=== PATIENT | male | born 1990 | race Caucasian/White ===

== ENCOUNTER 2016-11-18 02:35 | Emergency (ER) | payer SELFPAY ==
[~2016-11-18] VITALS: Ht 182.9 cm; Wt 95.3 kg
--- NOTE | 2016-11-18 02:35 | NUR ---
PT LIT BOOTH, PREBOOK. TAKEN TO OF
[2016-11-18 02:38] VITALS: BP 129/96
--- NOTE | 2016-11-18 02:40 | NUR ---
PT IS A 26Y MALE BIB [place] [employer] C/O OF RT ANKLE PAIN X 1 WEEK. PT FOR PRE BOOKING. PT STATES NO MED HX. DENIES N/V/D; SKIN IS PINK/WARM/DRY; AAOX4 WITH EVEN AND STEADY GAIT; LUNGS CLEAR BL; HR EVEN AND REGULAR; PT DENIES ANY FEVER, CP, SOB, OR COUGH AT THIS TIME; PATIENT STATES PAIN OF 8/10 AT THIS TIME; VSS; PATIENT POSITIONED FOR COMFORT; HOB ELEVATED; BEDRAILS UP X2; BED DOWN. ER MD MADE AWARE OF PT STATUS.
--- NOTE | 2016-11-18 02:47 | NUR ---
Dr. Zamora evaluating patient
--- NOTE | 2016-11-18 02:56 | NUR ---
PT TAKEN TO XRAY
--- NOTE | 2016-11-18 03:06 | NUR ---
PT RETURN FROM XRAY
--- NOTE | 2016-11-18 03:06 | NUR ---
Ibis blanchard in [facility] - 11/18/16 at 0306 by JOANN PT RETURN FROM CT
[2016-11-18 03:53] VITALS: BP 125/88
--- NOTE | 2016-11-18 03:53 | NUR ---
PATIENT BIB [place] [employer]. PATIENT EXAMINED BY DR. CARLSON. PATIENT MEDICALLY CLEARED AND RELEASED IN CUSTODY IN STABLE CONDITION. ORIGINAL PRE-BOOK FORM GIVEN TO OFFICER YOMAIRA #[id number].
== END 2016-11-18 03:53 ==
LOC: MED 02:35
DX: M72.2 Plantar fascial fibromatosis (principal)